=== PATIENT | female | born 1970 | race African-American/Black ===

== ENCOUNTER → 2016-09-16 | Outpatient (CLI) | payer BC ==
[~2016-09-16] MED LIST: DOXYCYCLINE150 MG PO; FLAGYL PO; FLEXERIL10 MG PO; IBUPROFEN PO; KEFLEX PO; LASIX20 MG PO; LORTAB 5/500 TA1 TA1 PO; MEDROL DOSEPAK4 MG DOB; MULTIPLE VITAMI1 T11 PO; NUVARING V1 VAG.RING VG; SINGULAIR PO; ZYRTEC; ZYRTEC PO
--- NOTE | ~2016-09-16 | MY29 ---
[facility] A Service of [facility] RADIOLOGY TEXT RESULTS PATIENT: FLORA JENNINGS LOCATION: [facility] : 72 UNIT #: [id number] AGE: [address]: CAROL AMATO MD SEX: F ORDER DR: [id number] [facility] [address] [place], [place] [address] [id number] O MR#: [id number] Acc #: [id number] NAME: FLORA JENNINGS : 1970 SEX: F STUDY DATE/TIME: 09/16/2016 16:56 UNIT: [facility] ROOM: STUDY DESCRIPTION: MY DELISA SCREENING W/ CAD BILAT Attending Physician: Carol Amato M.D. Referring Physician: Carol Amato M.D. Ordering Physician: Carol Amato M.D. Primary Care Physician: Carol Amato M.D. MEDICAL IMAGING REPORT This report is preliminary unless electronic signature is present EXAM Bilateral digital screening mammogram with CAD device, 09/16/2016 HISTORY Routine screening FINDINGS Bilateral digital screening mammogram was performed in craniocaudal and mediolateral oblique projections demonstrating minimal fibroglandular tissue. There is a focal scar in the right breast from prior biopsy which is unchanged in appearance compared with 09/14/2015. There is no suspicious mass or cluster of microcalcifications. The films have been reviewed by an FDA-approved CAD device. IMPRESSION Benign mammogram. Annual mammogram is recommended. Patients over the age of 40 are entered into a reminder system with target due date for the next mammogram. A result letter will also be sent to the patient. BIRADS: 2 Benign Finding Dictated by... Ori Car M.D. THIS IS AN ELECTRONICALLY VERIFIED REPORT Ori Car M.D. at 09/18/2016 2:36 PM JOSIANE/luis carlos TD: 09/17/2016 13:26 JOB #: [id number] [facility] A Service of [facility] RADIOLOGY TEXT RESULTS PATIENT: FLORA JENNINGS LOCATION: [facility] #: [id number] : 72 UNIT #: [id number] AGE: [address]: CAROL AMATO MD SEX: F ORDER DR: MEDICAL IMAGING REPORT Page 1 of 1 COPY
== END | disposition home or self-care (01) ==
LOC: CWCC 16:36
DX: Z12.31 Encounter for screening mammogram for malignant neoplasm of breast (principal)
CPT/HCPCS: G0202